=== PATIENT | female | born 1995 | race Caucasian/White ===

== ENCOUNTER 2018-03-02 06:13 | Day surgery (SDC) | payer OTHER, BC ==
[2018-03-02] MEDS ORDERED: MIDAZOLAM 1 MG/ML 2 ML INJ (08:25)
[2018-03-02] MEDS ORDERED: MEPERIDINE 50 MG INJ (08:25)
== END 2018-03-02 11:30 | disposition home or self-care (01) ==
LOC: GIL 06:13
DX: K29.50 Unspecified chronic gastritis without bleeding (principal); K29.80 Duodenitis without bleeding
CPT/HCPCS: 43239; 84703; 88305; 88312